=== PATIENT | female | born 1985 | race Caucasian/White ===

== ENCOUNTER 2016-07-07 12:47 | Emergency (ER) | payer MEDICAID ==
[2016-07-07 13:05] VITALS: BP 147/95; TEMP 97.4; O2SAT 100
--- NOTE | 2016-07-07 13:30 | ED.PDOC ---
History of Present Illness - General Chief Complaint: Abdominal Pain Stated Complaint: lower abdominal discomfort,near syncope Time Seen by Provider: 07/07/16 13:23 Information Source: patient, RN notes reviewed, Vital Signs reviewed Exam Limitations: no limitations - History of Present Illness Initial Comments: Patient stated that her symptoms ststed way back in January 2016 when she had mild abdominal crams lasting for few minutes and goes away with no relation to food intake,no diarrhea no blood in stool,no weight loss but weight gain,no vomiting she had also irregular periods. Had positive pregnacy test in March but no further md attention was done. Today stated had more nausea and occassional vomiting loose stools,still with vaginal spotting and more lower abdominal cramps. Abdominal Pain Onset Location: suprapubic Pain Radiation: no radiation Quality: moderate, waxing/waning Timing/Duration: intermittent Improving Factors: nothing Worsening Factors: nothing Associated Symptoms: nausea/vomiting, other - feels belly getting bigger Review of Systems - Review of Systems Constitutional: States: no symptoms reported EENTM: States: no symptoms reported Respiratory: States: no symptoms reported Cardiology: States: no symptoms reported Gastrointestinal/Abdominal: States: see HPI Genitourinary: States: no symptoms reported Musculoskeletal: States: no symptoms reported Skin: States: no symptoms reported Neurological: States: no symptoms reported Endocrine: States: no symptoms reported Hematologic/Lymphatic: States: no symptoms reported Past Medical History (General) - Patient Medical History Hx Other PMH: Yes - History of STI-chlamydia Surgical History: no surgical history - Vaccination History Hx Influenza Vaccination: No - Social History Hx Tobacco Use: No - Female History Patient is a Female of Child Bearing Age (10 -59 yrs old): Yes Hx Last Menstrual Period: 03/25/16 Patient : No Family Medical History - Family History Sister Family History: Unknown Living Status: Still Living Physical Exam - Physical Exam General Appearance: Alert, No apparent distress Eyes, Ears, Nose, Throat Exam: PERRL/EOMI, normal ENT inspection, TMs normal, pharynx normal Neck: non-tender, full range of motion, supple, normal inspection Respiratory: chest non-tender, lungs clear, normal breath sounds, no respiratory distress Cardiovascular/Chest: normal peripheral pulses, regular rate, rhythm, no edema, no gallop, no JVD, no murmur Peripheral Pulses: No deficit Gastrointestinal/Abdominal: normal bowel sounds, soft, tenderness - suprapubic area no peritoneal signs Back Exam: normal inspection, no CVA tenderness, no vertebral tenderness Extremity: normal range of motion, non-tender, normal inspection, no pedal edema , no calf tenderness Neurologic: travel registered nurse icu II-XII nml as tested, no motor/sensory deficits, alert, normal mood/affect, oriented x 3 Skin Exam: normal color, warm/dry, cyanosis Lymphatic: no adenopathy Progress - Results/Orders Results/Orders: Laboratory Results WBC 8.6 K/mm3 (4.8-10.8) 07/07/16 13:15 RBC 5.07 M/mm3 (4.20-5.40) 07/07/16 13:15 Hgb 14.7 gm/dL (12.0-16.0) 07/07/16 13:15 Hct 43.8 % (36.0-47.0) 07/07/16 13:15 MCV 86.3 fl (81.0-99.0) 07/07/16 13:15 MCH 29.0 pg (27.0-31.0) 07/07/16 13:15 MCHC 33.6 g/dL (33.0-37.0) 07/07/16 13:15 RDW 12.4 % (11.5-14.5) 07/07/16 13:15 Plt Count 308 K/mm3 (130-400) 07/07/16 13:15 MPV 9.1 fl (7.40-10.4) 07/07/16 13:15 Absolute Neuts (auto) 5.30 K/uL (1.8-6.8) 07/07/16 13:15 Absolute Lymphs (auto) 2.30 K/uL (1.0-3.4) 07/07/16 13:15 Absolute Monos (auto) 0.60 K/uL (0.2-0.8) 07/07/16 13:15 Absolute Eos (auto) 0.30 K/uL (0.0-0.4) 07/07/16 13:15 Absolute Basos (auto) 0.10 K/uL (0.0-0.1) 07/07/16 13:15 Neutrophils % 61.2 % (42.0-78.0) 07/07/16 13:15 Lymphocytes % 27.0 % (20.0-50.0) 07/07/16 13:15 Monocytes % 7.1 % (2.0-9.0) 07/07/16 13:15 Eosinophils % 3.8 % (1.0-5.0) 07/07/16 13:15 Basophils % 0.9 % (0.0-2.0) 07/07/16 13:15 Sodium 139 mmol/L (135-145) 07/07/16 13:15 Potassium 3.4 mmol/L (3.6-5.0) L 07/07/16 13:15 Chloride 104 mmol/L (101-111) 07/07/16 13:15 Carbon Dioxide 27 mmol/L (21-31) 07/07/16 13:15 Anion Gap 11.4 (12-18) L 07/07/16 13:15 BUN 14 mg/dL (7-18) 07/07/16 13:15 Creatinine 0.73 mg/dL (0.6-1.3) 07/07/16 13:15 BUN/Creatinine Ratio 19.2 (10-20) 07/07/16 13:15 Random Glucose 89 mg/dL (70-105) 07/07/16 13:15 Serum Osmolality 277.5 mOsm/L (275-295) 07/07/16 13:15 Calcium 9.8 mg/dL (8.4-10.2) 07/07/16 13:15 Total Bilirubin 0.9 mg/dL (0.2-1.0) 07/07/16 13:15 AST 29 IU/L (10-42) 07/07/16 13:15 ALT 44 IU/L (10-60) 07/07/16 13:15 Alkaline Phosphatase 54 IU/L (42-121) 07/07/16 13:15 Serum Total Protein 8.3 gm/dL (6.4-8.2) H 07/07/16 13:15 Albumin 4.4 g/dl (3.2-5.5) 07/07/16 13:15 Globulin 3.9 gm/dL (2.3-3.5) H 07/07/16 13:15 Albumin/Globulin Ratio 1.1 (1.1-1.9) 07/07/16 13:15 Lipase 35 U/L (22-51) 07/07/16 13:14 Beta HCG, Quant < 0.6 mIU/mL (0-4.9) 07/07/16 13:15 Urine Color Yellow (Yellow) 07/07/16 13:05 Urine Appearance Clear (Clear) 07/07/16 13:05 Urine pH 6.0 (4.5-7.8) 07/07/16 13:05 Ur Specific [place] 1.010 (1.005-1.030) 07/07/16 13:05 Urine Protein Negative mg/dL 07/07/16 13:05 Urine Glucose (UA) Negative mg/dL (Negative) 07/07/16 13:05 Urine Ketones Negative mg/dL (NEGATIVE) 07/07/16 13:05 Urine Blood Trace-intact (Negative) H 07/07/16 13:05 Urine Nitrite Negative 07/07/16 13:05 Urine Bilirubin Negative (NEGATIVE) 07/07/16 13:05 Urine Urobilinogen 0.2 mg/dL (0.2-1.0) 07/07/16 13:05 Ur Leukocyte Esterase Trace (Negative) H 07/07/16 13:05 Urine RBC 0-1 /hpf 07/07/16 13:05 Urine WBC 0-1 /hpf 07/07/16 13:05 Ur Epithelial Cells 3-5 /hpf 07/07/16 13:05 Urine Bacteria 0 07/07/16 13:05 Patient declined vaginal ultrasound and endo vaginal sono discuss all test result no abnormal findings noted. Departure - Departure Clinical Impression: Anovulatory amenorrhea Abdominal pain Qualifiers: Abdominal location: lower abdomen Qualifier Code: (R10.30) Lower abdominal pain , unspecified Time of Disposition: 15:14 Disposition: Discharge to Home or Self Care Condition: Good Departure Forms: ED Discharge - Pt. Copy, Patient Portal Self Enrollment Instructions: DI for Abdominal Pain-Adult, DI for Amenorrhea Prescriptions: Ondansetron HCl 8 mg PO TID PRN #10 tab PRN Reason: Nausea/Vomiting Home Medications: Ambulatory Orders Ondansetron HCl 8 mg PO TID PRN #10 tab 07/07/16 Additional Instructions: RETURN TO EMERGENCY ROOM NEEDED;AVOID GREASY SPICY FOODS UNTIL BETTER
[2016-07-07] MEDS ORDERED: LACTATED RINGERS 1,000 ML IVS ONE (13:51)
[2016-07-07] MEDS ORDERED: ONDANSETRON INJ 4 MG/2 ML VIAL IV ONE (14:29)
--- NOTE | 2016-07-07 14:41 | US ---
Study: Pelvic ultrasound. Indication: amenorrhea,pelvic pain Technique: Multiplanar grayscale sonographic images of the pelvis obtained transabdominally Comparison: None. Findings: The uterus measures 8.7 by 3.1 by 4.5 cm. Endometrium measures 9 mm in thickness. Myometrium unremarkable. Right ovary measures 2.3 by 2.0 by 2.3 cm. The left ovary measures 2.1 by 2.2 by 1.4 cm. Small subcentimeter bilateral ovarian follicular cysts noted and are benign. No additional followup required. No solid adnexal mass. Appropriate color Doppler flow noted to the ovaries. No free pelvic fluid. Impression: Unremarkable pelvic sonogram. Electronically signed by: Julio Damon MD 07/07/2016 14:40
== END 2016-07-07 15:34 | disposition home or self-care (01) ==
LOC: ER 12:47
DX: R10.30 Lower abdominal pain, unspecified (principal); N91.2 Amenorrhea, unspecified; R11.2 Nausea with vomiting, unspecified
CPT/HCPCS: 36415; 76856; 80053; 81001; 83690; 84702; 85025; J2405; J7120